=== PATIENT | female | born 1960 | race Caucasian/White ===

== ENCOUNTER 2019-01-28 12:44 | Outpatient (CLI) | payer BC, SELFPAY ==
[2019-01-28 13:14] LABS: Absolute Basophil Count 0.02 k/cumm (0.0-0.2); Absolute Eosinophil Count 0.05 k/cumm (0.0-0.7); Absolute Lymphocyte Count 0.85 k/cumm (1.2-3.4); Absolute Monocyte Count 0.28 k/cumm (0.11-0.7); Absolute Neutrophil Count 3.74 k/cumm (1.2-6.7); Basophils % 0.4; HCT 38.8 % (36.0-46.0); HGB 12.7 g/dL (12.0-15.5); Lymphocytes % 17.2; Mean Corp. HGB Concentration 32.7 g/dL (32.0-36.0); Mean Corpuscular Volume 88.6 fL (80-95); Mean Platelet Volume 11.5 fL (8.0-11.0); Monocytes % 5.7; Neutrophils % 75.7; Platelet Count 206 x1000/uL (130-400); RBC 4.38 m/cumm (4.00-5.20); RBC Distribution Width 13.1 % (11.7-14.6); White Blood Cell Count 4.94 k/cumm (4.4-10.8)
[2019-01-28 13:47] LABS: Iron 70 ug/dL (50-175); Total Iron Binding Capacity 296 ug/dL (250-450); Transferrin Sat 24 % (15-50)
[2019-01-28 13:52] LABS: Ferritin 30 ng/mL (8-388); Vitamin B12 439 pg/mL (193-986)
[2019-01-28 13:55] LABS: Folate > 20.0 ng/mL (8.6-20.0)
== END 2019-01-28 13:04 ==
PROVIDERS: PCP Physician Assistant; Visit Provider Naturopath
DX: N93.8 Other specified abnormal uterine and vaginal bleeding (principal)
CPT/HCPCS: 36415; 82607; 82728; 82746; 83540; 83550; 85025